=== PATIENT | female | born 1970 | race Caucasian/White ===

== ENCOUNTER → 2017-01-08 | Outpatient (CLI) | payer OTHER ==
--- NOTE | 2017-01-09 19:33 | Diagnostic Imaging Report ---
INDICATION: Digital mammogram bilateral screening. This study was compared to the prior exams of 08/29/15, 05/15/14 and 08/03/13. At this time, there are no current complaints. The current study was also evaluated with a Computer Aided Detection (CAD) system. FINDINGS: The fibroglandular tissue in both breasts is heterogeneously dense. This does limit the sensitivity of this exam. There are a number of scattered calcifications in the 12 o'clock position of the right breast. These may be somewhat more numerous than on the prior exam. These calcifications are not tightly clustered and most likely benign. Even so, I would recommend that a compression/magnification view of these calcifications be obtained in the CC and ML projections for further study. The left breast is unchanged. IMPRESSION: Additional mammographic views of the right breast would be recommended for further study. ACR BI-RADS Category 0: Incomplete. (Needs additional imaging evaluation). Result letter will be mailed to the patient. Note: At least 10% of breast cancer is not imaged by mammography. Dictated by: Dictated on workstation # [id number]
== END ==
LOC: RAD 09:54
PROVIDERS: ATTEND Nurse Practitioner
DX: Z12.31 Encounter for screening mammogram for malignant neoplasm of breast (principal)
CPT/HCPCS: 77067

== ENCOUNTER → 2017-02-03 | Outpatient (CLI) | payer OTHER ==
--- NOTE | 2017-02-03 20:41 | Diagnostic Imaging Report ---
EXAM: Digital mammogram, right diagnostic. INDICATION: Abnormal mammogram. FINDINGS: The screening mammogram performed on 01/08/17 noted a number of scattered calcifications in the 12 o'clock position of the right breast. These did seem more numerous than noted on the previous study of 08/29/2015. On the true lateral view of this exam, a few of these calcific densities appear to layer. This would suggest that the are related to milk of calcium, a benign condition. However, there are several other calcifications which do not layer. These have increased in number since the prior exam. I am not convinced that these calcifications are malignant. Even so, I would recommend a stereotactic biopsy be performed to exclude a malignant process. IMPRESSION: 1. The microcalcifications in the 12 o'clock position of the right breast do seem more numerous than on the prior exam. These microcalcifications may well be benign but they are technically indeterminate. A stereotactic biopsy would be recommended for further study. 2. These results were called to Malathi Randolph RN, by Dr. Art. CRITICAL FINDING Dictated by: Dictated on workstation # [id number]
== END ==
LOC: RAD 08:10
PROVIDERS: ATTEND Nurse Practitioner
DX: R92.8 Other abnormal and inconclusive findings on diagnostic imaging of breast (principal)

== ENCOUNTER → 2017-02-10 | Outpatient (CLI) | payer OTHER ==
[~2017-02-10] MED LIST: LIDOCAINE/EPI 1%-1:100,000 (XYLOCAINE) 20ML ONE
--- NOTE | 2017-02-11 08:46 | Diagnostic Imaging Report ---
EXAMINATION: Vacuum-assisted stereotactic breast biopsy , with clip placement, and specimen radiographs. INDICATION: Right breast calcifications . CONSENT: Informed consent was obtained from the patient. The risks, benefits, potential complications and alternatives were reviewed and all questions answered to the patient's satisfaction. PROCEDURE: The patient is positioned on the stereotactic procedure table prone. Prior mammograms were reviewed and based on the position of the calcifications, the appropriate the approach is selected. Initial stereotactic mammographic views at -15 and +15 degrees where performed and confirmation of localization of the lesion is performed. The localization is performed with the stereotactic software assistance and confirmed visually to match the area of interest. After satisfactory localization with initial stereotactic mammographic images, the biopsy tract approach is selected from superior to inferior with the skin site determined. After sterile preparation and draping, 1% lidocaine was utilized for local anesthesia. After confirming the targeted calcifications along the upper posterior central right breast, multiple vacuum-assisted stereotactic biopsies, with 8-gauge core needles, were performed. The specimen radiograph demonstrates calcifications. Subsequently, a marking clip was placed at the site of the biopsy. Subsequently CC and lateral views mammogram is performed and confirms proper positioning of the clip. The patient tolerated the procedure well with no immediate complications. IMPRESSION: Successful stereotactic vacuum-assisted right breast biopsy for calcifications along the upper posterior central aspect. A marking clip was left in place. The specimen radiograph demonstrates the calcifications. Dictated by: Dictated on workstation # [id number]
== END ==
LOC: RAD 09:50
PROVIDERS: ATTEND Obstetrics & Gynecology
DX: R92.8 Other abnormal and inconclusive findings on diagnostic imaging of breast (principal)
CPT/HCPCS: 19081; 88305

== ENCOUNTER → 2018-07-06 | Outpatient (CLI) | payer OTHER ==
--- NOTE | 2018-07-06 13:05 | Diagnostic Imaging Report ---
INDICATION: Routine screening. Comparison is made with prior mammograms from 01/08/2017 and 08/29/2015. 2-D and 3-D bilateral screening mammography was performed. The current study was also evaluated with a Computer Aided Detection (CAD) system. FINDINGS: Both breasts remain heterogeneously dense, limiting the sensitivity of mammography. Biopsy clip in the upper right breast is again noted. The parenchymal pattern is stable. No mass or malignant-appearing microcalcifications are seen. The axillae are unremarkable. IMPRESSION: No mammographic features suspicious for malignancy are identified. ACR BI-RADS Category 2: Benign findings. Result letter will be mailed to the patient. Note: At least 10% of breast cancer is not imaged by mammography. Dictated by: Dictated on workstation # [id number]
== END ==
LOC: RAD 09:45
PROVIDERS: ATTEND Nurse Practitioner
DX: Z12.31 Encounter for screening mammogram for malignant neoplasm of breast (principal)
CPT/HCPCS: 77067